=== PATIENT | male | born 1960 | race Caucasian/White ===

== ENCOUNTER 2017-10-11 11:09 | Inpatient (IN) ==
[~2017-10-11 11:09] MED LIST: Vancomycin 1,000 MG, Sodium Chloride IRRigation 1,000 ML IR ONE
[2017-10-11] MEDS ORDERED: Albuterol 2.5 MG/3 ML NEBULIZER IH ONE (11:38)
[2017-10-11] MEDS ORDERED: Ringers Solution, Lactated 1,000 ML IVC SCH (11:45)
--- NOTE | 2017-10-11 11:55 | Anesthesia Evaluation PreOp ---
Date of Encounter: 10/11/17 Time of Encounter: 11:53 - Past History Planned Operation: Left Femoral endarterectomy, Left Iliac Stent Cardiac History: Cardiac Surgery (CABG x 2 2007), Other (PVD) Anesthesia History: Past Anesthesia (CABG, R. RCR 2015, hernia) Alcohol Use: none Drug use: none Medications and Allergies Aspirin 325 mg PO DAILY 09/11/17 [History] Cilostazol [Pletal] 100 mg PO BID 09/11/17 [History] 3 Allergy/AdvReac Type Severity Reaction Status Date / Time cephalexin [From Keflex] Allergy Anaphylaxis Verified 10/11/17 12:03 Penicillins Allergy Anaphylaxis Verified 10/11/17 12:03 - Meds/Allergy Pre-op Review Medications Reviewed: Yes Allergies Reviewed: Yes Beta Blockers on Current Med List: No Anesthesia Results - Labs Laboratory Tests 10/03/17 10/03/17 10/03/17 10:28 10:28 10:28 WBC 7.5 Hgb 15.1 Hct 44.9 Plt Count 292 INR 1.1 Sodium 138 Potassium 4.2 Chloride 107 Carbon Dioxide 23 BUN 18 Creatinine 1.02 Date of Study: 10/09/2017 Procedures Performed: LEFT HEART CATH W/ GRAFTS Indications: Abnormal Test - Stress Impressions: There is severe three vessel coronary artery disease. The left ventricle is normal and has normal contractility EF 55% S/P CABG 3 of 3 patent bypass grafts. Recommendations: Optimal medical therapy of patient's disease. Aggressive risk factor modification. Anesthesia Exam O2 Sat Height 1.75 m Height 1.75 m Weight 77.564 kg Weight 77.564 kg O2 Sat by Pulse Oximetry 93 Vital Signs Temp Pulse Resp BP Pulse Ox 98.0 F 77 18 126/83 93 10/11/17 11:34 10/11/17 11:34 10/11/17 11:34 10/11/17 11:34 10/11/17 11:34 NPO (# of Hours): > 8 hrs Pain Scale: 0 Pain Scale Used: Numeric (1 - 10)
[2017-10-11] MEDS ORDERED: *HR* FentaNYL (PF) 100 MCG/2 ML VIAL ONE ×3 (12:32→14:51)
[2017-10-11] MEDS ORDERED: *HR* Propofol 200 MG/20 ML VIAL IVP ONE ×2 (12:32→13:56)
[2017-10-11] MEDS ORDERED: Lidocaine -MPF 2% 2 ML VIAL ONE ×3 (12:33→14:52)
[2017-10-11] MEDS ORDERED: *HR* Rocuronium Bromide 50 MG/5 ML VIAL ONE ×2 (12:34→15:38)
[2017-10-11] MEDS ORDERED: *HR* Midazolam HCl 2 MG/2 ML VIAL ONE ×2 (12:37→13:56)
[2017-10-11] MEDS ORDERED: Dexamethasone 4 MG/ML VIAL ONE ×2 (12:59→15:44)
[2017-10-11] MEDS ORDERED: Ondansetron 4 MG/2 ML VIAL ONE ×2 (12:59→15:44)
[2017-10-11] MEDS ORDERED: Heparin 1,000 UNITS/500 mL 1,500 ML ONE (13:51)
[2017-10-11] MEDS ORDERED: *HR* Succinylcholine 200 MG/10 ML VIAL IVP ONE (13:57)
[2017-10-11] MEDS ORDERED: Ketamine *HR* 500 MG/10 ML MDV ONE (13:58)
[2017-10-11] MEDS ORDERED: Acetaminophen IV 1,000 MG/100 ML INFUS..BTL ONE (14:03)
[2017-10-11] MEDS ORDERED: Isovue-300 150 ML INFUS..BTL IV ONE (14:04)
[2017-10-11] MEDS ORDERED: Heparin 1,000 UNITS/500 mL 500 ML ONE (14:05)
--- NOTE | 2017-10-11 14:38 | History & Physical Report ---
Date of Encounter: 10/11/17 Time of Encounter: 14:25 24 Hour HP Update - Instructions Instructions: If the History and Physical is less than 30 days old and was completed prior to A.M. admission and or procedure and has NOT been updated on calendar day of procedure please complete this update prior to performing procedure. - Update Patient reports changes in Medical Condition: No Changes in examination, assessment, or condition: No Changes in Medication: No Preop tests/diagnostics Reviewed: Yes Surgery Remains Indicated: Yes Consent for Planned Operative Procedure(s) Verified: Yes - Pre-Operative Checklist Preoperative Checklist Indicated: Yes Prophylactic Antibiotic Ordered: Yes (Vancomycin due to PCN allergy) Home Medications Include Beta Hillary: No Beta Hillary Taken Today (Day of Surgery): No Beta Hillary Taken Yesterday (Day Prior to Surgery): No Is VTE Prophylaxis Indicated?: Yes
[2017-10-11] MEDS ORDERED: Esmolol 100 MG/10 ML VIAL IVP ONE (15:09)
[2017-10-11] MEDS ORDERED: *HR* Heparin 5,000 UNIT/ML VIAL ONE ×2 (15:50→16:26)
[2017-10-11] MEDS ORDERED: *HR* OxyCODONE Immed Rel 5 MG TABLET PO PRN ×3 (16:02→18:06)
[2017-10-11] MEDS ORDERED: *HR* Labetalol 20 MG/4 ML SYRINGE IVP PRN ×3 (16:02→18:06)
[2017-10-11] MEDS ORDERED: *HR* Promethazine 25 MG/ML VIAL IVP PRN (16:02)
--- NOTE | 2017-10-11 16:06 | Anesthesia Procedures ---
Date of Encounter: 10/11/17 Time of Encounter: 14:50 Procedures: Anesthesia - Arterial Line Consent obtained: written consent Time out performed: Yes Supplemental Oxygen via Nasal Cannula (L/min): 15 Local Anesthetic: Lidocaine 1% Amount of Anesthetic used (mls): 1 Size (Gauge): 20 Length (inches): 1 3/4 Technique Used: sterile prep, guide wire technique, direct puncture technique Post-Procedure: line taped into place, dry sterile dressing placed Patient tolerated procedure: well, no complications Complications: none Site: Radial R Vitals: see anesthetic record
[2017-10-11] MEDS ORDERED: *HR* PHENYLEPHRINE 1,000 MCG/10 ML SYRINGE IVP ONE (16:07)
[2017-10-11] MEDS ORDERED: Neostigmine Methylsulfate 3 MG/3 ML SYRINGE ONE (16:54)
[2017-10-11] MEDS ORDERED: Metoclopramide 10 MG/2 ML VIAL ONE (16:54)
[2017-10-11] MEDS ORDERED: Ketorolac 30 MG/ML VIAL ONE (16:57)
[2017-10-11] MEDS: *HR* Morphine 2 MG/ML SYRINGE IVP PRN ×2 (17:20→17:50)
--- NOTE | 2017-10-11 17:22 | Operative Note ---
Date of procedure: 10/11/17 Pre-op diagnosis: Peripheral Vascular Disease with Rest Pain Post-op diagnosis: same Procedure: 1. Abdominal aortogram 2. Left common iliac artery 8 x 37mm stent placement x2 3. Left external iliac artery 8 x 37mm stent placement. 4. Left common and deep femoral artery endarterectomy with bovine pericardial patch angioplasty. Complications: None Anesthesia: GETA Surgeon: Capo Castillo Was there an animal care assistant present: No Estimated blood loss (cc): 50 Specimen: Left femoral plaque Condition: stable Disposition: PACU Procedure in Detail: Indications: The patient is a 57 year old male with a history of peripheral vascular disease with rest pain, coronary artery disease and tobacco abuse. He was found to have a left common and external iliac artery occlusion as well as significant left femoral artery disease. He reported rest pain and revascularization was recommended to alleviate his symptoms and reduce his risk of limb loss. Procedure: The patient was identified in the preoperative area. The risks, benefits, and alternatives of procedure were discussed and all questions were answered. He was taken to the operating room and placed in supine position on the operating room table. After the induction of general endotracheal anesthesia, he was cleaned and draped in normal sterile fashion. An oblique incision was made in the left groin sharply. Hemostasis was obtained with electrocautery. Through a process of blunt and sharp electrocautery dissection, the skin and subcutaneous tissues were incised and the left distal iliac, common femoral, deep femoral and superficial femoral arteries were dissected cicumferentially and surrounded with vessel loops. The patient received 5000 units of heparin intravenously and additional heparin throughout the case to maintain adequate anticoagulation. The vessels were occluded by applying tension to the vessel loops. A micropuncture needle was used to cannulate the left common femoral artery. A microwire was advanced into the left external iliac artery. The needle was exchanged for a 4 [place] micro sheath. The wire was exchanged for a Val[place]arc[place] wire. The microsheath was exchanged for a 6 [place] sheath. Using a catheter a glidewire was advanced into the aorta. The catheter was advanced into the aorta and the wire was removed. An angiogram revealed intraluminal placement of the catheter. A magic torque wire was advanced into the aorta. The catheter was removed. An aortogram was performed for stent sizing and positioning. An 8 x37mm stent was deployed at the origin of the left common iliac artery. An angiogram was performed that revealed the iliac artery remained occluded distal to the stent. An additional 8 x 37mm stent was advanced over the wire and deployed. An angiogram revealed external iliac atery stenosis. An additional 8 x 37mm stent was tehn advanced over the wire and deployed across the left external iliac artery stenosis. A completion angiogram revealed no hemodynamically significant residual iliac stenosis. The wire and sheath were removed and the vessel was flushed. A strong pulse was noted proximally in the common femoral artery but the femoral plaque obstructed flow in the mid and distal artery. A longitudinal ateriotomy was made into the common femoral artery and it was extended distally into the deep femoral artery. Dense, nearly occlusive atherosclerotic plaque was encountered in the comon femoral artery and noted to be extending into the deep femoral artery. Minimal retrograde flow was noted on release of the deep femoral vessel loop. The left superficial femoral artery was noted to be chronically occluded. Using a dental [place], a standard endarterectomy was performed on the left common femoral and deep femoral arteries. Proximal and distal endpoints were inspected. No elevated flaps were noted. A bovine pericardial patch was cut to fit the defect and sutured in place with running 6-0 Prolene. Prior to completing the patch anastomosis, each vessel was flushed individually, then reoccluded. Heparinized saline was infused into the lumen. The patch was completed and flow was restored. Thrombin and Gelfoam were used to aid in hemostasis. Polyphasic signal was noted distal to the distal end of the patch as well as the posterior tibial artery. Wound was irrigated with antibiotic-containing saline. Platelet-rich and platelet-poor plasma were infused into the wound. The wounds were reapproximated with layer of 2-0 Vicryl followed by two layers of 3-0 and Vicryl 3-0 Monocryl in the subcuticular layer. Sterile dressings were applied. The patient was extubated, taken to recovery room in stable condition.
[2017-10-11] MEDS ORDERED: Acetaminophen 325 MG TABLET PO PRN ×2 (17:24→18:06)
[2017-10-11] MEDS ORDERED: Naloxone 0.4 MG/ML INJ IVP PRN ×2 (17:24→18:06)
[2017-10-11] MEDS ORDERED: Ondansetron 4 MG/2 ML VIAL IVP PRN ×2 (17:24→18:06)
[2017-10-11] MEDS ORDERED: *HR* HYDROcodone/Acet 5/325 mg TABLET PO PRN ×2 (17:24→18:06)
[2017-10-11] MEDS ORDERED: OXYCODONE Oral CONC 10 MG/0.5 ML ORAL.SYG SL PRN ×4 (17:24→18:06)
[2017-10-11] MEDS ORDERED: Ketorolac 15 MG/ML VIAL IVP SCH (18:00)
[2017-10-11] MEDS ORDERED: *HR* Metoprolol 5 MG/5 ML VIAL IVP SCH (18:00)
--- NOTE | 2017-10-11 20:59 | Discharge Summary ---
<NoelleAllan J - Last Filed: 10/12/17 14:35> Orders not resulted at time of discharge: Pending orders 10/10/17 09:02 Red Blood Cells [BBK] Routine 10/11/17 17:17 Surgical Pathology [PTH] Routine Date of Encounter: 10/12/17 Time of Encounter: 14:35 - Discharge Diagnosis (1) Tobacco abuse Priority: Secondary Status: Chronic Comments: History of tobacco abuse (2) Atherosclerosis of [place] arteries of extremities with rest pain, bilateral legs Priority: Primary Status: Chronic Comments: Patient has significant left lower extremity symptoms. This led to noninvasive and contrast studies. The patient was admitted for left iliac stent and left femoral artery endarterectomy. (3) CAD (coronary artery disease) Priority: Secondary Status: Chronic Comments: Patient has history of coronary artery disease. He is under medical treatment. Qualifiers: Coronary Disease-Associated Artery/Lesion type: [place] artery [place] vs. transplanted heart: [place] heart Associated angina: without angina Qualified Code(s): I25.10 - Atherosclerotic heart disease of [place] coronary artery without angina pectoris - Hospital Course Hospital course: Mr. Coburn is a 57 year old male With left lower extremity claudication. Angiography revealed significant left iliac disease. The patient underwent a left iliac artery stent angioplasty and left common femoral artery endarterectomy. He had no periprocedural complications. He is feeling well. He is felt fit for discharge on the afternoon of postoperative day #1. Instructions were given prior to his discharge. - Time Spent with Patient Total time spent providing and/or coordinating discharge services: - Discharge Medications Prescriptions: OxyCODONE/APAP 5/325 [Percocet 5/325 MG] 1 each PO Q6HR PRN 7 Days #25 tablet PRN Reason: postoperative pain Clopidogrel [Plavix] 75 mg PO DAILY #30 tablet Home Medications: Aspirin 325 mg PO HS 09/11/17 [History] Clopidogrel [Plavix] 75 mg PO DAILY #30 tablet 10/11/17 [Rx] OxyCODONE/APAP 5/325 [Percocet 5/325 MG] 1 each PO Q6HR PRN 7 Days #25 tablet [Rx] Allergies/Adverse Reactions: 3 Allergy/AdvReac Type Severity Reaction Status Date / Time cephalexin [From Keflex] Allergy Anaphylaxis Verified 10/11/17 12:03 Penicillins Allergy Anaphylaxis Verified 10/11/17 12:03 Date of admission: 10/11/17 17:26 Primary care physician: Timbo Zhou, Consults: None Anticipated date of discharge: 10/12/17 Exam General: Present: Conversant, No Apparent Distress, Well developed, Well nourished HEENT: Present: Atraumatic Neck: Absent: JVD Neuro: Present: Alert and responsive, No focal deficits noted Abdomen: Present: Soft Vascular: Present: Color/Temperature (Left foot is warm and pink.), Surgical incisions (Patient has an intact dressing on the left groin.) Skin: Present: No rashes noted on visualized skin - Patient Status Disposition: Home, Self-Care Condition: Good Functional capacity at discharge: independent ambulation Overall status at discharge: patient is progressing back to baseline - Discharge Instructions Instructions: Clopidogrel (By mouth), Peripheral Vascular Stent Placement (GEN) , Peripheral Vascular Disorders (GEN) Follow Up With: Capo Amaya MD [Partnered Physician] - 10/30/17 1:20 pm Timbo Zhou DO [Primary Care Provider] - 10/23/17 9:00 am (THIS IS THE EARLIEST APPOINTMENT AVAILABLE FOR F/U) Additional Instructions: MAY REMOVE BANDAGES AND SHOWER ON 10/14/17. NO TUB BATHS OR SWIMMING UNTIL 11/04/17. WASH WOUNDS GENTLY AND PAT TO DRY. APPLY DRY GAUZE TO GROIN WOUND DAILY FOR [address] AMAYA AT [phone] WITH QUESTIONS OR CONCERNS. - Diet and Activity Activity: increase activity as tolerated Diet: advance to your usual diet <Capo Amaya - Last Filed: 10/18/17 18:53> Orders not resulted at time of discharge: Pending orders 10/10/17 09:02 Red Blood Cells [BBK] Routine 10/11/17 17:17 Surgical Pathology [PTH] Routine 10/12/17 04:00 Basic Metabolic Panel AM 0400 Complete Blood Count [HEME] AM 0400 Date of Encounter: 10/12/17 - Discharge Diagnosis (1) Atherosclerosis of [place] arteries of extremities with rest pain, bilateral legs Priority: Primary Status: Chronic (2) CAD (coronary artery disease) Priority: Secondary Status: Chronic Qualifiers: Coronary Disease-Associated Artery/Lesion type: [place] artery [place] vs. transplanted heart: [place] heart Associated angina: without angina Qualified Code(s): I25.10 - Atherosclerotic heart disease of [place] coronary artery without angina pectoris (3) Tobacco abuse Priority: Secondary Status: Chronic - Hospital Course Hospital course: Mr. Coburn is a 57 year old male - Time Spent with Patient Total time spent providing and/or coordinating discharge services: Date of admission: 10/11/17 17:26 Primary care physician: Timbo Zhou, Procedure(s) Performed: Left iliac stent and left femoral endarterectomy. Discharging clinician: Capo Amaya Exam Vital Signs, Last 4 Hours Temp Pulse Resp BP Pulse Ox 10/11/17 18:49 98.4 F 66 19 166/107 92 10/11/17 18:45 69 10/11/17 18:28 67 16 157/98 93 10/11/17 18:10 98.0 F 64 16 157/94 100 10/11/17 18:00 64 16 158/97 100 10/11/17 17:50 67 16 166/93 100 10/11/17 17:40 97.7 F 71 16 153/95 100 10/11/17 17:30 73 16 151/94 99 10/11/17 17:20 79 18 153/95 99 10/11/17 17:10 97.5 F L 88 20 155/103 99 - VTE Documentation of Mechanical Device: Intermittent pneumatic compression device
[2017-10-11] MEDS ORDERED: Aspirin 81 MG TAB.CHEW PO SCH (21:00)
[2017-10-11] MEDS: *HR* Metoprolol 5 MG/5 ML VIAL IVP SCH (23:51)
[2017-10-11] MEDS: Ketorolac 15 MG/ML VIAL IVP SCH (23:51)
[2017-10-12] MEDS ORDERED: Vancomycin 0 MG in D5% in Water 250 ML IVPB ONE (01:30)
[2017-10-12 04:49] LABS: Basophils % 0.2 %; Hemoglobin 14.3 g/dL (12.9-16.9); Immature Granulocytes % 0.2 % (0-4); Lymphocytes # 0.8 K/mcL (0.6-4.6); Lymphocytes % 8.4 %; Mean Corpuscular Volume 91.1 fL (83.0-100.0); Mean Platelet Volume 9.6 fL (9.4-12.4); Monocytes # 0.3 K/mcL (0.0-1.3); Neutrophils # 8.1 K/mcL (1.6-8.9); Platelet Count 218 K/mcL (140-400); Red Blood Count 4.61 M/mcL (4.19-5.50); Red Cell Distribution Width 13.1 % (11.5-14.5); Segmented Neutrophils % 88.2 %
[2017-10-12 05:11] LABS: BUN/Creatinine Ratio 18 (6-26); Blood Urea Nitrogen 17 mg/dL (6-20); Calcium 9.3 mg/dL (8.6-10.3); Carbon Dioxide 25 mEq/L (23-29); Chloride 104 mEq/L (98-107); Glucose 147 mg/dL (70-105); Osmolality,Calculated 286 (280-300); Potassium 4.7 mEq/L (3.5-5.1); Sodium 136 mEq/L (136-145); eGFR For African Americans > 60 (> 60); eGFR For Non-African Americans > 60 (> 60)
[2017-10-12] MEDS: *HR* Metoprolol 5 MG/5 ML VIAL IVP SCH ×2 (05:52→12:00)
[2017-10-12] MEDS: Ketorolac 15 MG/ML VIAL IVP SCH ×2 (05:52→12:00)
[2017-10-12] MEDS ORDERED: *HR* Heparin 5,000 UNIT/ML VIAL SQ SCH ×2 (06:00)
[2017-10-12 06:37] VITALS: BP 124/73
== END 2017-10-12 15:15 | disposition home or self-care (01) | DRG 254 ==
LOC: SAMDAY 11:09 → 2NNU 17:26
PROVIDERS: ADMIT Surgery; ATTEND Surgery

== ENCOUNTER 2017-11-28 10:38 | Inpatient (IN) ==
[2017-11-28] MEDS ORDERED: Albuterol 2.5 MG/3 ML NEBULIZER IH ONE ×2 (11:12→13:34)
[2017-11-28] MEDS ORDERED: CeFAZolin Syr 2,000MG/20 ML 2,000 MG/20 ML SYRINGE IVPB ONE (11:12)
[2017-11-28] MEDS ORDERED: Ringers Solution, Lactated 1,000 ML IVC SCH ×2 (11:15→13:45)
[2017-11-28] MEDS ORDERED: Albuterol 2.5 MG/3 ML NEBULIZER ONE (11:24)
--- NOTE | 2017-11-28 12:20 | History & Physical Report ---
Date of Encounter: 11/28/17 Time of Encounter: 12:15 24 Hour HP Update - Instructions Instructions: If the History and Physical is less than 30 days old and was completed prior to A.M. admission and or procedure and has NOT been updated on calendar day of procedure please complete this update prior to performing procedure. - Update Patient reports changes in Medical Condition: No Changes in examination, assessment, or condition: No Changes in Medication: No Preop tests/diagnostics Reviewed: Yes Surgery Remains Indicated: Yes Consent for Planned Operative Procedure(s) Verified: Yes - Pre-Operative Checklist Preoperative Checklist Indicated: Yes Prophylactic Antibiotic Ordered: Yes (vancomycin due to MRSA risk) Home Medications Include Beta Hillary: No Beta Hillary Taken Today (Day of Surgery): No Beta Hillary Taken Yesterday (Day Prior to Surgery): No Is VTE Prophylaxis Indicated?: Yes
[2017-11-28] MEDS ORDERED: *HR* Succinylcholine 200 MG/10 ML VIAL IVP ONE (12:39)
[2017-11-28] MEDS ORDERED: Lidocaine -MPF 2% 2 ML VIAL ONE (12:39)
[2017-11-28] MEDS ORDERED: Lidocaine -MPF 4% 5 ML AMPUL ONE (12:39)
[2017-11-28] MEDS ORDERED: *HR* Rocuronium Bromide 50 MG/5 ML VIAL ONE (12:39)
[2017-11-28] MEDS ORDERED: Ondansetron 4 MG/2 ML VIAL ONE (12:39)
[2017-11-28] MEDS ORDERED: *HR* Propofol 200 MG/20 ML VIAL IVP ONE (12:39)
[2017-11-28] MEDS ORDERED: *HR* FentaNYL (PF) 100 MCG/2 ML VIAL ONE (12:39)
[2017-11-28] MEDS ORDERED: Dexamethasone 4 MG/ML VIAL ONE (12:39)
[2017-11-28] MEDS ORDERED: *HR* Midazolam HCl 2 MG/2 ML VIAL ONE (12:39)
--- NOTE | 2017-11-28 12:57 | Anesthesia Evaluation PreOp ---
Date of Encounter: 11/28/17 Time of Encounter: 12:55 - Past History Planned Operation: Right Iliac stent, femoral endartrectomy Cardiac History: HTN, Hyperlipidemia, Cardiac Surgery (CABG 2007), Other (2017: Positive stress test, Patent grafts b) Pulmonary History: Smoker [employer] History: Denies Any Significant HX Alcohol Use: none Drug use: none Medications and Allergies Aspirin 325 mg PO HS 09/11/17 [History] Clopidogrel [Plavix] 75 mg PO DAILY #30 tablet 10/11/17 [Rx] 3 Allergy/AdvReac Type Severity Reaction Status Date / Time cephalexin [From Keflex] Allergy Anaphylaxis Verified 11/28/17 11:48 Penicillins Allergy Anaphylaxis Verified 11/28/17 11:48 - Meds/Allergy Pre-op Review Medications Reviewed: Yes Allergies Reviewed: Yes Anesthesia Results - Labs Laboratory Tests 11/26/17 11/26/17 10:42 10:42 Hgb 15.5 Hct 45.9 Plt Count 258 Sodium 140 Potassium 4.6 BUN 17 Creatinine 1.09 Glucose 98 Calcium 9.5 Anesthesia Exam O2 Sat Height 1.75 m Height 1.75 m Height 1.75 m Weight 79.379 kg Weight 79.379 kg Weight 79.379 kg O2 Sat by Pulse Oximetry 98 Vital Signs Temp Pulse Resp BP Pulse Ox 97.7 F 58 18 134/81 98 11/28/17 11:08 11/28/17 11:08 11/28/17 11:08 11/28/17 11:08 11/28/17 11:08 NPO (# of Hours): >8 - HEENT Mallampati: II Teeth: Normal - Cardiac Rhythm: Regular - Pulmonary Breath Sounds: bilateral Clear Anesthesia Assess/Plan ASA Score: 3 Modified [place] Scale for Level of Consciousness: Cooperative, oriented, and tranquil Anesthetic Plan: General Monitoring Plan: Standard Monitors Recovery Plan: PACU Anes Supervising Prov Stmt: Patient informed and consented. Risks, benefits, and alternatives discussed. Patient wishes to proceed.
[2017-11-28] MEDS ORDERED: Heparin 1,000 UNITS/500 mL 1,500 ML ONE (13:02)
[2017-11-28] MEDS ORDERED: Lidocaine 1% 20 ML MDV ONE (13:02)
[2017-11-28] MEDS ORDERED: *HR* PHENYLEPHRINE 1,000 MCG/10 ML SYRINGE IVP ONE (13:31)
[2017-11-28] MEDS ORDERED: Acetaminophen IV 1,000 MG/100 ML INFUS..BTL IVPB ONE (13:34)
[2017-11-28] MEDS ORDERED: *HR* Labetalol 20 MG/4 ML SYRINGE IVP PRN ×2 (13:34→17:16)
[2017-11-28] MEDS ORDERED: *HR* HYDROmorphone 2 MG TABLET PO PRN (13:34)
[2017-11-28] MEDS ORDERED: *HR* OxyCODONE Immed Rel 5 MG TABLET PO PRN ×2 (13:34→17:16)
[2017-11-28] MEDS ORDERED: Naloxone 0.4 MG/ML INJ IVP PRN ×2 (13:34→17:16)
[2017-11-28] MEDS ORDERED: Ondansetron 4 MG/2 ML VIAL IVP ONE (13:34)
[2017-11-28] MEDS ORDERED: MORPHINE SUL Oral CONC 10 MG/0.5 ML ORAL.SYG SL PRN (13:34)
[2017-11-28] MEDS ORDERED: *HR* Meperidine 25 MG/ML SYRINGE IVP PRN (13:34)
[2017-11-28] MEDS ORDERED: Isovue-300 50 ML VIAL IVP ONE (14:30)
[2017-11-28] MEDS ORDERED: *HR* Heparin 5,000 UNIT/ML VIAL ONE ×2 (14:40→15:08)
--- NOTE | 2017-11-28 15:55 | Operative Note ---
Date of procedure: 11/28/17 Pre-op diagnosis: Peripheral vascular disease with disabling claudication Post-op diagnosis: same Procedure: 1. Right iiliac throbectomy with 5 [place] marielena embolectomy catheter. 2. Right iliofemoral endarterectomy with bovine pericardial patch angioplasty. 3. Right deep femoral artery endarterectomy. Complications: None Anesthesia: ALLY Surgeon: Capo Castillo Was there an educational assistant present: No Estimated blood loss (cc): 100 Specimen: Right lower extremity thrombus and plaque Condition: stable Disposition: PACU Procedure in Detail: Indications: The patient is a 57 year old male with multiple medical comorbidities including coronary artery disease and tobacco abuse. The patient reported progressively disabling right lower extremity claudication. An angiogram revealed right extrenal iliac, common femoral, deep femoral and superficial femoral artery high grade irregular stenoses. Revascularization was recommended for symptomatic relief. Procedure: The patient was identified in the preoperative area. The risks, benefits, and alternatives of procedure were discussed and all questions were answered. He was taken to the operating room and placed in supine position on the operating room table. After the induction of general endotracheal anesthesia, he was cleaned and draped in normal sterile fashion. An oblique incision was made along the right groin sharply. Hemostasis was obtained with electrocautery. Through a process of blunt and sharp electrocautery dissection, the skin and subcutaneous tissues were incised and the mid to distal external iliac artery was dissected underneath the inguinal ligament and a vessel loop was passed around it. The common femoral artery, deep femoral artery and superficial femoral artery were dissected circumferentially and surrounded with vessel loops. The vessels were noted to be firm and heaviliy calcified. The superficial femoral artery was palpated and the dissection was extended distally until it was noted to be soft without significant plaque. A vessel loop was then used to surround the artery. The patient received 5000 units of heparin intravenously and additional heparin throughout the case to maintain adequate anticoagulation. The vessels were occluded. A longitudinal arteriotomy was made sharply into the common femoral artery. It was extended under the inguinal ligament into the external iliac artery proximally. It was then extended into the superficial femoral artery distally. Significant thrombus was noted and a 5 [place] marielena embolectomy catheter was passed proximally and signficant thrombus was retrieved. The ballon was noted to get stuck in the distal external iliac multiple times. A firm calcified plaque could be palpated in the region. Using a dental freer, an endarterectomy was performed from the external iliac artery through the common femoral artery. The plaque was irregular and heavily calficied. Proximally, the lumen became patent without significant stenosis. The plaque was excised sharply and no elevated flaps were noted at the endpoint. Distally, the plaque was excised at the deep femoral artery. Using a dental freer, plaque was then circumferentially excised from the deep femoral artery using an eversion technique. The plaque was excised and no elevated flap was noted. Release of the vessel loop revealed significant retrograde flow. The loop was tightened. The lumen was irrigated with heparinzed saline. A bovine pericardial patch was cut to fit the defects in the external iliac, common femoral and superficial femoral arteries. The patch was sutured in place with running 6-0 Prolene. Prior to completing the patch anastomosis, each vessel was flushed individually, then reoccluded. Heparinized saline was infused into the lumen. The patch was completed and flow was restored. Thrombin and Gelfoam were used to aid in hemostasis. Polyphasic signal was noted distal to the distal end of the patch as well as the posterior tibial artery. Wound was irrigated with antibiotic-containing saline. Platelet-rich and platelet-poor plasma were infused into the wound. The wounds were reapproximated with layer of 2-0 Vicryl followed by two layers of 3-0 and Vicryl 3-0 Monocryl in the subcuticular layer. Sterile dressings were applied. The patient was extubated and taken to recovery room in stable condition.
[2017-11-28] MEDS ORDERED: 0.9 % Sodium Chloride 1,000 ML IVC SCH (17:16)
[2017-11-28] MEDS ORDERED: Acetaminophen 325 MG TABLET PO PRN (17:16)
[2017-11-28] MEDS ORDERED: *HR* HYDROcodone/Acet 5/325 mg TABLET PO PRN (17:16)
[2017-11-28] MEDS ORDERED: Ondansetron 4 MG/2 ML VIAL IVP PRN (17:16)
[2017-11-28] MEDS ORDERED: OXYCODONE Oral CONC 10 MG/0.5 ML ORAL.SYG SL PRN ×2 (17:16)
[2017-11-28] MEDS: *HR* Metoprolol 5 MG/5 ML VIAL IVP SCH (17:43)
[2017-11-28] MEDS ORDERED: Aspirin 325 MG TABLET PO SCH (21:00)
[2017-11-28] MEDS ORDERED: Aspirin 81 MG TAB.CHEW PO SCH (21:00)
[2017-11-29] MEDS: *HR* Metoprolol 5 MG/5 ML VIAL IVP SCH ×2 (00:31→05:23)
[2017-11-29 04:36] LABS: Basophils % 0.1 %; Hematocrit 39.8 % (37.5-50.1); Immature Granulocytes % 0.5 % (0-4); Lymphocytes % 9.9 %; Mean Corpuscular HGB Conc 33.9 g/dL (31.6-35.5); Mean Corpuscular Hemoglobin 31.3 pg (28.0-33.3); Mean Corpuscular Volume 92.1 fL (83.0-100.0); Mean Platelet Volume 10.1 fL (9.4-12.4); Monocytes # 0.5 K/mcL (0.0-1.3); Monocytes % 4.6 %; Neutrophils # 8.6 K/mcL (1.6-8.9); Platelet Count 228 K/mcL (140-400); Red Blood Count 4.32 M/mcL (4.19-5.50); Red Cell Distribution Width 12.8 % (11.5-14.5); Segmented Neutrophils % 84.9 %
[2017-11-29 04:37] LABS: Hemoglobin 13.5 g/dL (12.9-16.9)
[2017-11-29 04:50] LABS: BUN/Creatinine Ratio 20 (6-26); Blood Urea Nitrogen 17 mg/dL (6-20); Calcium 8.8 mg/dL (8.6-10.3); Carbon Dioxide 25 mEq/L (23-29); Chloride 107 mEq/L (98-107); Glucose 125 mg/dL (70-105); Osmolality,Calculated 289 (280-300); Potassium 4.7 mEq/L (3.5-5.1); Sodium 138 mEq/L (136-145); eGFR For African Americans > 60 (> 60); eGFR For Non-African Americans > 60 (> 60)
[2017-11-29] MEDS ORDERED: *HR* Heparin 5,000 UNIT/ML VIAL SQ SCH ×2 (06:00)
[2017-11-29 07:14] VITALS: BP 113/79
--- NOTE | 2017-11-29 09:51 | Discharge Summary ---
Date of Encounter: 11/29/17 Time of Encounter: 10:05 - Discharge Diagnosis (1) Atherosclerosis of [place] arteries of extremities with rest pain, bilateral legs Priority: Primary Status: Chronic Comments: The patient is postoperative day #1 after a right iliac thrombectomy and right iliofemoral endarterectomy. He is healing well. His feet are warm and he reports improvement of his symptoms. He will be discharged today. (2) CAD (coronary artery disease) Priority: Secondary Status: Chronic Qualifiers: Coronary Disease-Associated Artery/Lesion type: [place] artery [place] vs. transplanted heart: [place] heart Associated angina: without angina Qualified Code(s): I25.10 - Atherosclerotic heart disease of [place] coronary artery without angina pectoris (3) Tobacco abuse Priority: Secondary Status: Chronic - Hospital Course Hospital course: Mr. Coburn is a 57 year old male with peripheral vascular disease, coronary artery disease and tobacco abuse. He was admitted on 11/28/17 and underwent a right iliac thrombectomy and right lower extremity endarterectomy. He was discharged on postoperative day #1 in stable condition without complications. Time spent discussing smoking cessation with patient: 3 to 10 minutes - Time Spent with Patient Total time spent providing and/or coordinating discharge services: - Discharge Medications Prescriptions: OxyCODONE/APAP 5/325 [Percocet 5/325 MG] 1 each PO Q6HR PRN 5 Days #20 tablet PRN Reason: POSTOPERATIVE PAIN Home Medications: Aspirin 325 mg PO HS 09/11/17 [History] Clopidogrel [Plavix] 75 mg PO DAILY #30 tablet 10/11/17 [Rx] OxyCODONE/APAP 5/325 [Percocet 5/325 MG] 1 each PO Q6HR PRN 5 Days #20 tablet [Rx] Allergies/Adverse Reactions: 3 Allergy/AdvReac Type Severity Reaction Status Date / Time cephalexin [From Keflex] Allergy Anaphylaxis Verified 11/28/17 11:48 Penicillins Allergy Anaphylaxis Verified 11/28/17 11:48 Date of admission: 11/28/17 16:42 Primary care physician: Timbo Zhou, Procedure(s) Performed: Right iliac thrombectomy and right lower extremity endarterectomy. Discharging clinician: Capo Amaya Anticipated date of discharge: 11/29/17 Exam Vital Signs, Last 4 Hours Temp Pulse Resp BP Pulse Ox 11/29/17 07:44 96 11/29/17 07:41 70 11/29/17 07:29 77 20 96 11/29/17 07:11 97.9 F 72 16 113/79 91 General: Present: Conversant, No Apparent Distress HEENT: Present: Pupils equal Neck: Absent: JVD Cardiac: Present: Reg Rate and Rhythm Lungs: Present: Normal Breath Sounds Neuro: Present: Alert and responsive, No focal deficits noted Abdomen: Present: Soft, Non-tender Vascular: Present: Normal capillary refill, Pulse, normal (pedal signals present bilaterally), Surgical incisions (incision clean and dry, no erythema, no hematoma). Absent: Cyanosis, Edema Skin: Present: No rashes noted on visualized skin - Patient Status Disposition: Home, Self-Care Condition: Good Functional capacity at discharge: independent ambulation Overall status at discharge: patient is back to baseline - Discharge Instructions Instructions: Peripheral Vascular Stent Placement (DC), Peripheral Vascular Disorders (DC) Follow Up With: Nita Gibson CNP [Advanced Practice Nurse] - 12/06/17 9:00 am Capo Amaya MD [Partnered Physician] - 01/08/18 1:00 pm Additional Instructions: MAY REMOVE BANDAGE AND SHOWER ON 11/30/17. NO TUB BATHS OR SWIMMING UNTIL 12/20/17. WASH WOUND GENTLY AND PAT TO DRY. APPLY DRY GAUZE TO WOUND DAILY FOR [address] AMAYA AT [phone] WITH QUESTIONS OR CONCERNS. - Diet and Activity Activity: increase activity as tolerated Diet: low fat, low cholesterol - VTE Documentation of Mechanical Device: Intermittent pneumatic compression device
== END 2017-11-29 11:03 | disposition home or self-care (01) | DRG 272 ==
LOC: SAMDAY 10:38 → 2NNU 16:42
PROVIDERS: ADMIT Surgery; ATTEND Surgery

== ENCOUNTER 2019-08-26 07:00 | Inpatient (IN) ==
[2019-08-26] MEDS ORDERED: Albuterol 2.5 MG/3 ML NEBULIZER IH PRN (07:34)
[2019-08-26] MEDS ORDERED: Clindamycin 900 MG/50 ML 900 MG/50 ML IV.SOLN IVPB ONE (07:34)
[2019-08-26] MEDS ORDERED: Famotidine 20 MG/2 ML VIAL IVP ONE (07:39)
[2019-08-26] MEDS ORDERED: Acetaminophen IV 1,000 MG/100 ML INFUS..BTL IVPB ONE (07:39)
[2019-08-26] MEDS ORDERED: Ringers Solution, Lactated 1,000 ML IVC SCH (07:45)
[2019-08-26] MEDS ORDERED: *HR* Midazolam HCl 2 MG/2 ML VIAL ONE (08:23)
[2019-08-26] MEDS ORDERED: Ondansetron 4 MG/2 ML VIAL ONE (08:24)
[2019-08-26] MEDS ORDERED: Heparin 1,000 UNITS/500 mL 500 ML ONE (08:24)
[2019-08-26] MEDS ORDERED: *HR* FentaNYL (PF) 100 MCG/2 ML VIAL ONE ×3 (08:24→13:13)
[2019-08-26] MEDS ORDERED: Lidocaine -MPF 2% 2 ML VIAL ONE (08:24)
[2019-08-26] MEDS ORDERED: *HR* Propofol 200 MG/20 ML VIAL IVP ONE (08:24)
[2019-08-26] MEDS ORDERED: Dexamethasone 4 MG/ML VIAL ONE (08:24)
[2019-08-26] MEDS ORDERED: *HR* Succinylcholine 200 MG/10 ML VIAL IVP ONE (08:24)
[2019-08-26] MEDS ORDERED: Lidocaine HCL 4 ML Topical Solution (Laryng-O-Jet Kit Sterile Pak) TP ONE (08:24)
[2019-08-26] MEDS ORDERED: *HR* Heparin 5,000 UNIT/ML VIAL ONE ×2 (08:32→11:55)
[2019-08-26] MEDS ORDERED: *HR* Remifentanil 2 MG VIAL IVP ONE (08:34)
[2019-08-26] MEDS ORDERED: *HR* PHENYLEPHRINE 1,000 MCG/10 ML SYRINGE IVP ONE (08:34)
[2019-08-26] MEDS ORDERED: Vancomycin 1,000 MG VIAL ONE (08:43)
[2019-08-26] MEDS ORDERED: Heparin 1,000 UNITS/500 mL 1,500 ML ONE (08:43)
[2019-08-26] MEDS ORDERED: Isovue-300 50ML VIAL ONE (08:44)
[2019-08-26] MEDS ORDERED: *HR* Promethazine 25 MG/ML VIAL IVP PRN (09:25)
[2019-08-26] MEDS ORDERED: Ondansetron 4 MG/2 ML VIAL IVP ONE (09:25)
[2019-08-26] MEDS ORDERED: *HR* OxyCODONE Immed Rel 5 MG TABLET PO PRN ×2 (09:25→15:42)
[2019-08-26] MEDS ORDERED: *HR* HYDROmorphone (PF) 1 MG/ML SYRINGE IVP PRN (09:25)
[2019-08-26] MEDS ORDERED: *HR* Phenylephrine 10 MG/ML VIAL ONE (10:28)
[2019-08-26] MEDS ORDERED: 0.9 % Sodium Chloride 1,000 ML IVC SCH (15:42)
[2019-08-26] MEDS ORDERED: *HR* HYDROcodone/Acet 5/325 mg TABLET PO PRN ×2 (15:42)
[2019-08-26] MEDS ORDERED: *HR* Heparin 5,000 UNIT/ML VIAL IVP ONE (15:42)
[2019-08-26] MEDS ORDERED: *HR* Labetalol 20 MG/4 ML SYRINGE IVP PRN (15:42)
[2019-08-26] MEDS ORDERED: *HR* Heparin 5,000 UNIT/ML VIAL IVP PRN ×2 (15:42)
[2019-08-26] MEDS ORDERED: Ondansetron 4 MG/2 ML VIAL IVP PRN (15:42)
[2019-08-26] MEDS ORDERED: Naloxone 0.4 MG/ML INJ IVP PRN (15:42)
[2019-08-26] MEDS ORDERED: Acetaminophen 325 MG TABLET PO PRN ×2 (15:42)
[2019-08-26] MEDS ORDERED: Heparin 25,000 UNIT/250 ML D5W 25,000 UNIT/250 ML IV.SOLN IVC SCH (15:42)
[2019-08-26] MEDS ORDERED: FLU Vac QV 19-20 (6Month+)/PF 0.5 ML SYRINGE IM ONE (15:58)
[2019-08-26] MEDS: *HR* Metoprolol 5 MG/5 ML VIAL IVP SCH (16:07)
[2019-08-26] MEDS: *HR* OxyCODONE Immed Rel 5 MG TABLET PO PRN (16:08)
[2019-08-26 17:02] LABS: Hematocrit 46.6 % (37.5-50.1); Hemoglobin 15.9 g/dL (12.9-16.9); Mean Corpuscular HGB Conc 34.1 g/dL (31.6-35.5); Mean Corpuscular Hemoglobin 31.7 pg (28.0-33.3); Mean Corpuscular Volume 92.8 fL (83.0-100.0); Platelet Count 212 K/mcL (140-400); Red Blood Count 5.02 M/mcL (4.19-5.50); White Blood Count 6.3 K/mcL (4.3-11.1)
[2019-08-26 17:04] LABS: INR 1.2; Prothrombin Time 13.6 Seconds (9.4-12.1)
[2019-08-26] MEDS: Clindamycin 600 MG/50 ML 600 MG/50 ML IV.SOLN IVPB SCH (17:50)
[2019-08-27] MEDS: *HR* Metoprolol 5 MG/5 ML VIAL IVP SCH ×2 (00:04→06:12)
[2019-08-27] MEDS: Clindamycin 600 MG/50 ML 600 MG/50 ML IV.SOLN IVPB SCH (00:06)
[2019-08-27] MEDS: *HR* OxyCODONE Immed Rel 5 MG TABLET PO PRN (02:17)
[2019-08-27 02:43] LABS: Basophils % 0.2 %; Hematocrit 42.8 % (37.5-50.1); Hemoglobin 14.8 g/dL (12.9-16.9); Immature Granulocytes % 0.5 % (0-4); Lymphocytes # 1.1 K/mcL (0.6-4.6); Lymphocytes % 10.9 %; Mean Corpuscular HGB Conc 34.6 g/dL (31.6-35.5); Mean Corpuscular Hemoglobin 31.6 pg (28.0-33.3); Mean Corpuscular Volume 91.3 fL (83.0-100.0); Monocytes # 0.7 K/mcL (0.0-1.3); Monocytes % 7.2 %; Neutrophils # 8.3 K/mcL (1.6-8.9); Platelet Count 203 K/mcL (140-400); Red Blood Count 4.69 M/mcL (4.19-5.50); Red Cell Distribution Width 13.1 % (11.5-14.5); Segmented Neutrophils % 81.2 %; White Blood Count 10.2 K/mcL (4.3-11.1)
[2019-08-27 03:00] LABS: BUN/Creatinine Ratio 11 (6-26); Blood Urea Nitrogen 10 mg/dL (6-20); Calcium 8.5 mg/dL (8.6-10.3); Carbon Dioxide 24 mEq/L (23-29); Chloride 106 mEq/L (98-107); Glucose 106 mg/dL (70-105); Osmolality,Calculated 283 (280-300); Potassium 4.1 mEq/L (3.5-5.1); Sodium 137 mEq/L (136-145); eGFR For African Americans > 60 (> 60); eGFR For Non-African Americans > 60 (> 60)
[2019-08-27] MEDS ORDERED: *HR* Heparin 5,000 UNIT/ML VIAL SQ SCH (06:00)
[2019-08-27 06:52] VITALS: BP 118/81
[2019-08-27] MEDS ORDERED: Aspirin 325 MG TABLET PO SCH (09:00)
== END 2019-08-27 11:43 | disposition home or self-care (01) | DRG 272 ==
LOC: SAMDAY 07:00 → 2NNU 15:50
PROVIDERS: ADMIT Surgery; ATTEND Surgery

== ENCOUNTER 2019-09-11 09:20 | Inpatient (IN) ==
[2019-09-11] MEDS ORDERED: Lidocaine -MPF 2% 2 ML VIAL ONE (09:47)
[2019-09-11] MEDS ORDERED: *HR* Propofol 200 MG/20 ML VIAL IVP ONE (09:48)
[2019-09-11] MEDS ORDERED: *HR* FentaNYL (PF) 100 MCG/2 ML VIAL ONE ×2 (09:49→16:41)
[2019-09-11] MEDS ORDERED: *HR* Midazolam HCl 2 MG/2 ML VIAL ONE (09:50)
[2019-09-11] MEDS ORDERED: *HR* Heparin 5,000 UNIT/ML VIAL ONE ×2 (09:51→14:00)
[2019-09-11] MEDS ORDERED: *HR* Methadone 10 MG TABLET PO ONE (09:52)
[2019-09-11] MEDS ORDERED: Famotidine 20 MG/2 ML VIAL IVP ONE (09:52)
[2019-09-11] MEDS ORDERED: Acetaminophen IV 1,000 MG/100 ML INFUS..BTL IVPB ONE (09:52)
[2019-09-11] MEDS ORDERED: Ondansetron 4 MG/2 ML VIAL ONE ×2 (09:53→15:24)
[2019-09-11] MEDS ORDERED: Lidocaine -MPF 4% 5 ML AMPUL ONE (09:55)
[2019-09-11] MEDS ORDERED: Albuterol 2.5 MG/3 ML NEBULIZER IH PRN (09:56)
[2019-09-11] MEDS ORDERED: Clindamycin 900 MG/50 ML 900 MG/50 ML IV.SOLN IVPB ONE (09:56)
[2019-09-11] MEDS: Ringers Solution, Lactated 1,000 ML IVC SCH ×2 (10:24→18:05)
[2019-09-11] MEDS ORDERED: Heparin 1,000 UNITS/500 mL 0 ML ONE (11:03)
[2019-09-11] MEDS ORDERED: Vancomycin 1,000 MG, Sodium Chloride IRRigation 1,000 ML IR ONE (11:10)
[2019-09-11] MEDS ORDERED: *HR* Remifentanil 2 MG VIAL IVP ONE (11:26)
[2019-09-11] MEDS ORDERED: Heparin 1,000 UNITS/500 mL 500 ML ONE (11:49)
[2019-09-11] MEDS ORDERED: EPHEDrine 50 MG/ML VIAL ONE ×3 (12:15→16:13)
[2019-09-11 12:46] LABS: ABG Base Excess -2 mEq/L (-2 to 3); ABG Chloride 107 mEq/L (98-107); ABG Glucose 104 mg/dL (60-95); ABG HCO3 25 mEq/L (21-27); ABG Ionized Calcium 1.09 mmol/L (1.15-1.35); ABG Oxygen Saturation 100 % (95-98); ABG PCO2 54 mmHg (35-45); ABG PH 7.28 pH Units (7.32-7.45); ABG PO2 338 mmHg (85-104); ABG TCO2 27 mEq/L (20-26)
[2019-09-11] MEDS ORDERED: Vancomycin 1,000 MG VIAL ONE ×2 (13:18→15:34)
[2019-09-11 13:23] LABS: ABG Base Excess -1 mEq/L (-2 to 3); ABG Chloride 108 mEq/L (98-107); ABG Glucose 101 mg/dL (60-95); ABG HCO3 25 mEq/L (21-27); ABG Ionized Calcium 1.12 mmol/L (1.15-1.35); ABG Oxygen Saturation 100 % (95-98); ABG PCO2 45 mmHg (35-45); ABG PH 7.35 pH Units (7.32-7.45); ABG PO2 457 mmHg (85-104); ABG TCO2 26 mEq/L (20-26)
[2019-09-11] MEDS ORDERED: *HR* Remifentanil 1 MG VIAL IVP ONE (14:47)
[2019-09-11] MEDS ORDERED: Dexamethasone 4 MG/ML VIAL ONE (15:24)
[2019-09-11 16:46] LABS: ABG Base Excess -5 mEq/L (-2 to 3); ABG Chloride 109 mEq/L (98-107); ABG Glucose 170 mg/dL (60-95); ABG HCO3 22 mEq/L (21-27); ABG Ionized Calcium 1.13 mmol/L (1.15-1.35); ABG Oxygen Saturation 100 % (95-98); ABG PCO2 50 mmHg (35-45); ABG PH 7.26 pH Units (7.32-7.45); ABG PO2 328 mmHg (85-104); ABG TCO2 24 mEq/L (20-26)
[2019-09-11] MEDS ORDERED: *HR* HYDROMORPHONE 2 MG/ML VIAL ONE (17:06)
[2019-09-11] MEDS ORDERED: *HR* Promethazine 25 MG/ML VIAL IVP PRN (17:27)
[2019-09-11] MEDS ORDERED: *HR* Labetalol 20 MG/4 ML SYRINGE IVP PRN ×2 (17:27→19:13)
[2019-09-11] MEDS ORDERED: Ondansetron 4 MG/2 ML VIAL IVP ONE (17:27)
[2019-09-11] MEDS ORDERED: *HR* OxyCODONE Immed Rel 5 MG TABLET PO PRN (17:27)
[2019-09-11] MEDS: *HR* HYDROmorphone (PF) 1 MG/ML SYRINGE IVP PRN ×2 (18:04→18:17)
[2019-09-11] MEDS ORDERED: Ondansetron 4 MG/2 ML VIAL IVP PRN (19:13)
[2019-09-11] MEDS ORDERED: Naloxone 0.4 MG/ML INJ IVP PRN (19:13)
[2019-09-11] MEDS ORDERED: 0.9 % Sodium Chloride 1,000 ML IVC SCH (19:13)
[2019-09-12] MEDS: *HR* Metoprolol 5 MG/5 ML VIAL IVP SCH ×4 (00:43→17:20)
[2019-09-12 04:06] LABS: INR 1.1
[2019-09-12 04:08] LABS: Activated Partial Thrombo Time 25.6 Seconds (26.0-36.0)
[2019-09-12 04:09] LABS: BUN/Creatinine Ratio 18 (6-26); Blood Urea Nitrogen 20 mg/dL (6-20); Calcium 7.9 mg/dL (8.6-10.3); Carbon Dioxide 21 mEq/L (23-29); Chloride 110 mEq/L (98-107); Glucose 152 mg/dL (70-105); Osmolality,Calculated 292 (280-300); Potassium 5.6 mEq/L (3.5-5.1); Sodium 138 mEq/L (136-145); eGFR For African Americans > 60 (> 60); eGFR For Non-African Americans > 60 (> 60)
[2019-09-12 05:25] LABS: Basophils % 0.1 %; Hematocrit 36.5 % (37.5-50.1); Hemoglobin 11.9 g/dL (12.9-16.9); Immature Granulocytes % 0.4 % (0-4); Lymphocytes # 0.7 K/mcL (0.6-4.6); Lymphocytes % 4.8 %; Mean Corpuscular HGB Conc 32.6 g/dL (31.6-35.5); Mean Platelet Volume 9.2 fL (9.4-12.4); Monocytes % 7.7 %; Neutrophils # 11.8 K/mcL (1.6-8.9); Platelet Count 316 K/mcL (140-400); Red Blood Count 3.72 M/mcL (4.19-5.50); Red Cell Distribution Width 12.6 % (11.5-14.5); White Blood Count 13.6 K/mcL (4.3-11.1)
[2019-09-12 05:33] LABS: Mean Corpuscular Volume 98.1 fL (83.0-100.0)
[2019-09-12] MEDS: *HR* Heparin 5,000 UNIT/ML VIAL SQ SCH ×2 (05:40→17:20)
[2019-09-12] MEDS ORDERED: *HR* Heparin 5,000 UNIT/ML VIAL SQ SCH (06:00)
[2019-09-12] MEDS ORDERED: Furosemide 20 MG/2 ML VIAL IVP ONE (06:32)
[2019-09-12] MEDS ORDERED: Calcium Gluconate 1gm/50mL 1 GM/50 ML BAG IVPB ONE (06:34)
[2019-09-12] MEDS: 0.9 % Sodium Chloride 1,000 ML IVC SCH ×2 (07:37→17:19)
[2019-09-12] MEDS: Aspirin 325 MG TABLET PO SCH (07:49)
[2019-09-12] MEDS ORDERED: 0.9 % Sodium Chloride 1,000 ML IVC SCH (18:43)
[2019-09-13] MEDS: *HR* Metoprolol 5 MG/5 ML VIAL IVP SCH ×5 (00:18→23:55)
[2019-09-13] MEDS ORDERED: 0.9 % Sodium Chloride 500 ML IVC SCH (03:00)
[2019-09-13 04:07] LABS: VBG Ionized Calcium 1.15 mmol/L (1.15-1.35)
[2019-09-13 04:08] LABS: Basophils % 0.2 %; Hematocrit 30.9 % (37.5-50.1); Hemoglobin 10.4 g/dL (12.9-16.9); Immature Granulocytes % 0.4 % (0-4); Lymphocytes # 0.8 K/mcL (0.6-4.6); Lymphocytes % 9.3 %; Mean Corpuscular HGB Conc 33.7 g/dL (31.6-35.5); Mean Corpuscular Hemoglobin 32.2 pg (28.0-33.3); Mean Corpuscular Volume 95.7 fL (83.0-100.0); Mean Platelet Volume 9.4 fL (9.4-12.4); Monocytes # 0.7 K/mcL (0.0-1.3); Monocytes % 8.2 %; Neutrophils # 6.9 K/mcL (1.6-8.9); Platelet Count 289 K/mcL (140-400); Red Blood Count 3.23 M/mcL (4.19-5.50); Red Cell Distribution Width 12.8 % (11.5-14.5); Segmented Neutrophils % 81.9 %; White Blood Count 8.5 K/mcL (4.3-11.1)
[2019-09-13 04:36] LABS: BUN/Creatinine Ratio 20 (6-26); Blood Urea Nitrogen 20 mg/dL (6-20); Calcium 8.2 mg/dL (8.6-10.3); Carbon Dioxide 25 mEq/L (23-29); Chloride 111 mEq/L (98-107); Glucose 122 mg/dL (70-105); Osmolality,Calculated 294 (280-300); Sodium 140 mEq/L (136-145); eGFR For African Americans > 60 (> 60); eGFR For Non-African Americans > 60 (> 60)
[2019-09-13] MEDS: *HR* Heparin 5,000 UNIT/ML VIAL SQ SCH ×2 (06:14→16:32)
[2019-09-13] MEDS: Aspirin 325 MG TABLET PO SCH (08:00)
[2019-09-13] MEDS ORDERED: Bisacodyl 10 MG RECTAL SUPPOSITORY RC ONE (09:00)
[2019-09-14 01:51] LABS: Basophils % 0.3 %; Eosinophils % 0.1 %; Hematocrit 31.5 % (37.5-50.1); Hemoglobin 10.8 g/dL (12.9-16.9); Immature Granulocytes % 0.3 % (0-4); Lymphocytes % 14.2 %; Mean Corpuscular HGB Conc 34.3 g/dL (31.6-35.5); Mean Corpuscular Hemoglobin 32.2 pg (28.0-33.3); Mean Platelet Volume 9.7 fL (9.4-12.4); Monocytes # 0.6 K/mcL (0.0-1.3); Monocytes % 9.2 %; Neutrophils # 5.2 K/mcL (1.6-8.9); Platelet Count 323 K/mcL (140-400); Red Blood Count 3.35 M/mcL (4.19-5.50); Red Cell Distribution Width 12.6 % (11.5-14.5); Segmented Neutrophils % 75.9 %; White Blood Count 6.8 K/mcL (4.3-11.1)
[2019-09-14 02:16] LABS: BUN/Creatinine Ratio 18 (6-26); Blood Urea Nitrogen 18 mg/dL (6-20); Calcium 8.8 mg/dL (8.6-10.3); Carbon Dioxide 25 mEq/L (23-29); Chloride 108 mEq/L (98-107); Glucose 108 mg/dL (70-105); Osmolality,Calculated 294 (280-300); Potassium 3.7 mEq/L (3.5-5.1); Sodium 141 mEq/L (136-145); eGFR For African Americans > 60 (> 60); eGFR For Non-African Americans > 60 (> 60)
[2019-09-14] MEDS: *HR* Heparin 5,000 UNIT/ML VIAL SQ SCH ×2 (05:06→18:15)
[2019-09-14] MEDS: *HR* Metoprolol 5 MG/5 ML VIAL IVP SCH ×4 (05:08→23:50)
[2019-09-14] MEDS: Aspirin 325 MG TABLET PO SCH (12:02)
[2019-09-14] MEDS ORDERED: Albuterol 2.5 MG/3 ML NEBULIZER IH PRN (18:04)
[2019-09-14] MEDS ORDERED: Albuterol 2.5 MG/3 ML NEBULIZER IH ONE (18:04)
[2019-09-14] MEDS: D5% in Lactated Ringers 1,000 ML IVC SCH (23:50)
[2019-09-15] MEDS: *HR* Metoprolol 5 MG/5 ML VIAL IVP SCH ×3 (05:48→23:06)
[2019-09-15] MEDS: *HR* Heparin 5,000 UNIT/ML VIAL SQ SCH (05:48)
[2019-09-15] MEDS: Aspirin 325 MG TABLET PO SCH (08:17)
[2019-09-15] MEDS ORDERED: Ondansetron 4 MG/2 ML VIAL IVP PRN ×2 (10:47→19:47)
[2019-09-15] MEDS: D5% in Lactated Ringers 1,000 ML IVC SCH ×2 (12:46→20:17)
[2019-09-15] MEDS ORDERED: Lidocaine/EPI 1:100k 1% 20 ML VIAL ONE (16:06)
[2019-09-15] MEDS ORDERED: Dexamethasone 4 MG/ML VIAL ONE (16:06)
[2019-09-15] MEDS ORDERED: *HR* Rocuronium Bromide 50 MG/5 ML VIAL ONE (16:06)
[2019-09-15] MEDS ORDERED: Lidocaine -MPF 1% 5 ML AMPUL ONE (16:06)
[2019-09-15] MEDS ORDERED: *HR* Propofol 200 MG/20 ML VIAL IVP ONE (16:06)
[2019-09-15] MEDS ORDERED: *HR* FentaNYL (PF) 100 MCG/2 ML VIAL ONE (16:06)
[2019-09-15] MEDS ORDERED: Ondansetron 4 MG/2 ML VIAL ONE (16:06)
[2019-09-15] MEDS ORDERED: Vancomycin 1,000 MG VIAL ONE ×2 (16:07→16:54)
[2019-09-15] MEDS ORDERED: *HR* Midazolam HCl 2 MG/2 ML VIAL ONE ×2 (16:07→17:59)
[2019-09-15] MEDS ORDERED: Acetaminophen IV 1,000 MG/100 ML INFUS..BTL ONE (16:13)
[2019-09-15] MEDS ORDERED: *HR* OxyCODONE Immed Rel 5 MG TABLET PO PRN (16:49)
[2019-09-15] MEDS ORDERED: Clindamycin 900 MG/50 ML 900 MG/50 ML IV.SOLN IVPB ONE (16:57)
[2019-09-15] MEDS: *HR* HYDROmorphone (PF) 1 MG/ML SYRINGE IVP PRN ×4 (18:20→18:40)
[2019-09-15] MEDS ORDERED: Naloxone 0.4 MG/ML INJ IVP PRN (19:47)
[2019-09-15] MEDS ORDERED: Albuterol 2.5 MG/3 ML NEBULIZER IH PRN (19:47)
[2019-09-15] MEDS ORDERED: *HR* Labetalol 20 MG/4 ML SYRINGE IVP PRN (19:47)
[2019-09-16 01:26] LABS: Basophils % 0.2 %; Hematocrit 32.6 % (37.5-50.1); Hemoglobin 11.3 g/dL (12.9-16.9); Immature Granulocytes % 0.4 % (0-4); Lymphocytes # 0.3 K/mcL (0.6-4.6); Lymphocytes % 6.9 %; Mean Corpuscular HGB Conc 34.7 g/dL (31.6-35.5); Mean Corpuscular Hemoglobin 31.7 pg (28.0-33.3); Mean Corpuscular Volume 91.3 fL (83.0-100.0); Mean Platelet Volume 9.8 fL (9.4-12.4); Monocytes # 0.5 K/mcL (0.0-1.3); Monocytes % 11.2 %; Neutrophils # 3.8 K/mcL (1.6-8.9); Platelet Count 295 K/mcL (140-400); Red Blood Count 3.57 M/mcL (4.19-5.50); Red Cell Distribution Width 12.4 % (11.5-14.5); Segmented Neutrophils % 81.3 %; White Blood Count 4.6 K/mcL (4.3-11.1)
[2019-09-16 01:43] LABS: BUN/Creatinine Ratio 25 (6-26); Blood Urea Nitrogen 22 mg/dL (6-20); Calcium 8.5 mg/dL (8.6-10.3); Carbon Dioxide 30 mEq/L (23-29); Chloride 103 mEq/L (98-107); Glucose 151 mg/dL (70-105); Osmolality,Calculated 298 (280-300); Potassium 3.6 mEq/L (3.5-5.1); Sodium 141 mEq/L (136-145); eGFR For African Americans > 60 (> 60); eGFR For Non-African Americans > 60 (> 60)
[2019-09-16] MEDS: Clindamycin 600 MG/50 ML 600 MG/50 ML IV.SOLN IVPB SCH ×2 (02:12→07:50)
[2019-09-16] MEDS: *HR* Metoprolol 5 MG/5 ML VIAL IVP SCH ×4 (06:17→23:30)
[2019-09-16] MEDS: *HR* Heparin 5,000 UNIT/ML VIAL SQ SCH ×2 (06:17→18:01)
[2019-09-16] MEDS: D5% in Lactated Ringers 1,000 ML IVC SCH ×2 (07:50→21:31)
[2019-09-16] MEDS: Aspirin 325 MG TABLET PO SCH (07:50)
[2019-09-17] MEDS: *HR* Heparin 5,000 UNIT/ML VIAL SQ SCH ×2 (05:43→17:02)
[2019-09-17] MEDS: *HR* Metoprolol 5 MG/5 ML VIAL IVP SCH ×4 (05:43→23:26)
[2019-09-17] MEDS ORDERED: Acetaminophen 325 MG TABLET PO PRN (06:33)
[2019-09-17] MEDS ORDERED: *HR* OxyCODONE Immed Rel 5 MG TABLET PO PRN (06:33)
[2019-09-17] MEDS: Aspirin 325 MG TABLET PO SCH (08:06)
[2019-09-17] MEDS: D5% in Lactated Ringers 1,000 ML IVC SCH (11:34)
[2019-09-17] MEDS ORDERED: Bisacodyl 10 MG RECTAL SUPPOSITORY RC ONE (13:03)
[2019-09-17] MEDS ORDERED: Ketorolac 15 MG/ML VIAL IVP PRN (17:19)
[2019-09-17] MEDS: Metoclopramide 10 MG/2 ML VIAL IVP SCH ×2 (18:14→23:26)
[2019-09-18] MEDS: D5% in Lactated Ringers 1,000 ML IVC SCH ×2 (00:09→17:40)
[2019-09-18 00:59] LABS: Basophils % 0.1 %; Hematocrit 29.1 % (37.5-50.1); Hemoglobin 10.1 g/dL (12.9-16.9); Immature Granulocytes % 0.4 % (0-4); Lymphocytes # 0.6 K/mcL (0.6-4.6); Lymphocytes % 8.6 %; Mean Corpuscular HGB Conc 34.7 g/dL (31.6-35.5); Mean Corpuscular Hemoglobin 32.4 pg (28.0-33.3); Mean Corpuscular Volume 93.3 fL (83.0-100.0); Mean Platelet Volume 9.6 fL (9.4-12.4); Monocytes # 0.9 K/mcL (0.0-1.3); Monocytes % 11.6 %; Neutrophils # 5.8 K/mcL (1.6-8.9); Nucleated Red Blood Cells 0.3 /100 WBC (0); Platelet Count 308 K/mcL (140-400); Red Blood Count 3.12 M/mcL (4.19-5.50); Red Cell Distribution Width 12.4 % (11.5-14.5); Segmented Neutrophils % 79.3 %
[2019-09-18 01:02] LABS: White Blood Count 7.3 K/mcL (4.3-11.1)
[2019-09-18 01:18] LABS: BUN/Creatinine Ratio 23 (6-26); Blood Urea Nitrogen 25 mg/dL (6-20); Calcium 8.6 mg/dL (8.6-10.3); Carbon Dioxide 35 mEq/L (23-29); Chloride 97 mEq/L (98-107); Glucose 137 mg/dL (70-105); Osmolality,Calculated 293 (280-300); Sodium 138 mEq/L (136-145); eGFR For African Americans > 60 (> 60); eGFR For Non-African Americans > 60 (> 60)
[2019-09-18] MEDS: *HR* Heparin 5,000 UNIT/ML VIAL SQ SCH ×2 (06:16→16:22)
[2019-09-18] MEDS: Metoclopramide 10 MG/2 ML VIAL IVP SCH ×3 (06:17→16:22)
[2019-09-18] MEDS: *HR* Metoprolol 5 MG/5 ML VIAL IVP SCH ×3 (06:18→16:22)
[2019-09-18] MEDS ORDERED: Potassium Chloride 40 MEQ, Lidocaine 1% 2 ML in 0.9 % Sodium Chloride 500 ML IVPB ONE (08:01)
[2019-09-18] MEDS: Aspirin 325 MG TABLET PO SCH (11:08)
[2019-09-19] MEDS: Metoclopramide 10 MG/2 ML VIAL IVP SCH ×5 (01:10→23:41)
[2019-09-19] MEDS: *HR* Metoprolol 5 MG/5 ML VIAL IVP SCH ×5 (01:10→23:41)
[2019-09-19 05:05] LABS: Basophils % 0.2 %; Hematocrit 27.7 % (37.5-50.1); Hemoglobin 9.2 g/dL (12.9-16.9); Lymphocytes # 0.9 K/mcL (0.6-4.6); Lymphocytes % 17.7 %; Mean Corpuscular HGB Conc 33.2 g/dL (31.6-35.5); Mean Corpuscular Hemoglobin 31.6 pg (28.0-33.3); Mean Corpuscular Volume 95.2 fL (83.0-100.0); Mean Platelet Volume 9.7 fL (9.4-12.4); Monocytes # 0.6 K/mcL (0.0-1.3); Monocytes % 12.2 %; Neutrophils # 3.6 K/mcL (1.6-8.9); Nucleated Red Blood Cells 0.4 /100 WBC (0); Platelet Count 328 K/mcL (140-400); Red Blood Count 2.91 M/mcL (4.19-5.50); Red Cell Distribution Width 12.6 % (11.5-14.5); Segmented Neutrophils % 68.9 %; White Blood Count 5.2 K/mcL (4.3-11.1)
[2019-09-19 05:26] LABS: BUN/Creatinine Ratio 26 (6-26); Blood Urea Nitrogen 25 mg/dL (6-20); Calcium 8.1 mg/dL (8.6-10.3); Carbon Dioxide 32 mEq/L (23-29); Chloride 100 mEq/L (98-107); Glucose 112 mg/dL (70-105); Osmolality,Calculated 301 (280-300); Sodium 143 mEq/L (136-145); eGFR For African Americans > 60 (> 60); eGFR For Non-African Americans > 60 (> 60)
[2019-09-19] MEDS: *HR* Heparin 5,000 UNIT/ML VIAL SQ SCH ×2 (06:22→17:35)
[2019-09-19] MEDS: Aspirin 325 MG TABLET PO SCH (09:13)
[2019-09-19] MEDS: D5% in Lactated Ringers 1,000 ML IVC SCH (09:15)
[2019-09-19] MEDS ORDERED: Potassium Chloride 40 MEQ, Lidocaine 1% 2 ML in 0.9 % Sodium Chloride 500 ML IVPB ONE (13:31)
[2019-09-19] MEDS: Calcium Chloride 1,000 MG in 0.9 % Sodium Chloride 100 ML IVPB ONE ×2 (15:20→16:27)
[2019-09-19] MEDS: D5% in 0.45% NACL w KCl 20 MEQ/1,000 ML MLS IVC SCH (15:30)
[2019-09-19] MEDS ORDERED: Calcium Gluconate 1gm/50mL 1 GM/50 ML BAG IVPB ONE (17:00)
[2019-09-19] MEDS: *HR* HYDROcodone/Acet 5/325 mg TABLET PO PRN (22:53)
[2019-09-20] MEDS: *HR* Heparin 5,000 UNIT/ML VIAL SQ SCH (05:05)
[2019-09-20] MEDS: *HR* Metoprolol 5 MG/5 ML VIAL IVP SCH ×2 (05:06→12:16)
[2019-09-20] MEDS: Metoclopramide 10 MG/2 ML VIAL IVP SCH (05:07)
[2019-09-20] MEDS: Aspirin 325 MG TABLET PO SCH (07:42)
[2019-09-20] MEDS: D5% in 0.45% NACL w KCl 20 MEQ/1,000 ML MLS IVC SCH (09:32)
[2019-09-20] MEDS: *HR* HYDROcodone/Acet 5/325 mg TABLET PO PRN (09:36)
[2019-09-20 10:27] LABS: Basophils % 0.5 %; Hematocrit 28.5 % (37.5-50.1); Hemoglobin 9.8 g/dL (12.9-16.9); Immature Granulocytes % 1.6 % (0-4); Lymphocytes # 1.2 K/mcL (0.6-4.6); Lymphocytes % 18.9 %; Mean Corpuscular HGB Conc 34.4 g/dL (31.6-35.5); Mean Corpuscular Hemoglobin 31.5 pg (28.0-33.3); Mean Corpuscular Volume 91.6 fL (83.0-100.0); Mean Platelet Volume 9.1 fL (9.4-12.4); Monocytes # 0.5 K/mcL (0.0-1.3); Monocytes % 8.1 %; Neutrophils # 4.4 K/mcL (1.6-8.9); Nucleated Red Blood Cells 0.3 /100 WBC (0); Platelet Count 339 K/mcL (140-400); Red Blood Count 3.11 M/mcL (4.19-5.50); Red Cell Distribution Width 12.8 % (11.5-14.5); Segmented Neutrophils % 70.9 %; White Blood Count 6.2 K/mcL (4.3-11.1)
[2019-09-20 10:44] LABS: BUN/Creatinine Ratio 17 (6-26); Blood Urea Nitrogen 16 mg/dL (6-20); Carbon Dioxide 27 mEq/L (23-29); Chloride 103 mEq/L (98-107); Glucose 112 mg/dL (70-105); Osmolality,Calculated 286 (280-300); Potassium 3.4 mEq/L (3.5-5.1); Sodium 137 mEq/L (136-145); eGFR For African Americans > 60 (> 60); eGFR For Non-African Americans > 60 (> 60)
[2019-09-20 11:52] VITALS: BP 146/84
== END 2019-09-20 13:08 | disposition home or self-care (01) | DRG 270 ==
LOC: SAMDAY 09:20 → 2NNU 11:00
PROVIDERS: ADMIT Surgery; ATTEND Surgery

== ENCOUNTER 2022-03-16 06:05 | Inpatient (IN) ==
[2022-03-16] MEDS ORDERED: Ringers Solution, Lactated 1,000 ML IVC SCH (06:30)
[2022-03-16] MEDS ORDERED: *HR* FentaNYL (PF) 100 MCG/2 ML VIAL ONE (06:40)
[2022-03-16] MEDS ORDERED: *HR* Propofol 200 MG/20 ML VIAL IVP ONE (06:40)
[2022-03-16] MEDS ORDERED: Lidocaine -MPF 2% 5 ML VIAL ONE (06:42)
[2022-03-16] MEDS ORDERED: Ondansetron 4 MG/2 ML VIAL ONE (06:42)
[2022-03-16] MEDS ORDERED: *HR* Succinylcholine 200 MG/10 ML VIAL IVP ONE (06:42)
[2022-03-16] MEDS ORDERED: *HR* Rocuronium Bromide 50 MG/5 ML VIAL ONE ×3 (06:42→11:49)
[2022-03-16] MEDS ORDERED: Vancomycin 1,250 MG/262.5 ML IV.SOLN IVPB ONE ×3 (07:00→19:30)
[2022-03-16] MEDS ORDERED: *HR* Remifentanil 2 MG VIAL IVP ONE (07:06)
[2022-03-16] MEDS ORDERED: *HR* Phenylephrine 10 MG/ML VIAL ONE (07:07)
[2022-03-16] MEDS ORDERED: Bupivacaine-MPF 0.25% 10 ML VIAL ONE (07:14)
[2022-03-16] MEDS ORDERED: Heparin 1,000 UNITS/500 mL 1,000 ML ONE (07:14)
[2022-03-16] MEDS ORDERED: Protamine Sulfate 50 MG/5 ML VIAL IVP ONE (07:14)
[2022-03-16] MEDS ORDERED: Vancomycin 1,000 MG VIAL ONE (07:15)
[2022-03-16] MEDS ORDERED: *HR* Midazolam HCl 2 MG/2 ML VIAL ONE (07:17)
[2022-03-16] MEDS ORDERED: *HR* OxyCODONE Immed Rel 5 MG TABLET PO PRN ×3 (07:20→14:37)
[2022-03-16] MEDS ORDERED: Acetaminophen IV 1,000 MG/100 ML BAG IVPB ONE (07:20)
[2022-03-16] MEDS ORDERED: Famotidine 20 MG/2 ML VIAL IVP ONE (07:20)
[2022-03-16] MEDS ORDERED: *HR* Labetalol 20 MG/4 ML SYRINGE IVP PRN ×3 (07:20→14:37)
[2022-03-16] MEDS ORDERED: *HR* HYDROmorphone 2 MG TABLET PO PRN (07:20)
[2022-03-16] MEDS ORDERED: Ondansetron 4 MG/2 ML VIAL IVP PRN ×3 (07:20→14:37)
[2022-03-16] MEDS ORDERED: Pregabalin 75 MG CAPSULE PO ONE (07:20)
[2022-03-16] MEDS ORDERED: Clindamycin 900 MG/50 ML 900 MG/50 ML IV.SOLN IVPB ONE ×3 (07:28→14:37)
[2022-03-16] MEDS ORDERED: Heparin 1,000 UNITS/500 mL 0 ML ONE (07:35)
[2022-03-16] MEDS ORDERED: Vancomycin 1,000 MG, Sodium Chloride IRRigation 1,000 ML IR ONE (07:45)
[2022-03-16] MEDS ORDERED: EPHEDrine 50 MG/ML VIAL ONE (08:18)
[2022-03-16] MEDS ORDERED: *HR* Heparin 5,000 UNIT/ML VIAL ONE ×2 (09:27→10:39)
[2022-03-16] MEDS ORDERED: *HR* Remifentanil 1 MG VIAL IVP ONE (12:12)
[2022-03-16] MEDS ORDERED: Sugammadex Sodium 200 MG/2 ML VIAL IV ONE (12:20)
[2022-03-16] MEDS ORDERED: Acetaminophen 325 MG TABLET PO PRN ×2 (13:00→14:37)
[2022-03-16] MEDS ORDERED: *HR* HYDROcodone/Acet 5/325 mg TABLET PO PRN (13:00)
[2022-03-16] MEDS ORDERED: Naloxone 0.4 MG/ML INJ IVP PRN (13:00)
[2022-03-16] MEDS ORDERED: 0.9 % Sodium Chloride 1,000 ML IVC SCH ×2 (13:00→14:37)
[2022-03-16] MEDS: *HR* HYDROmorphone PF 0.5 MG/0.5 ML SYRINGE IVP PRN ×2 (13:20→13:37)
[2022-03-16] MEDS ORDERED: Nitroglycerin 0.4 MG TAB.SUBL SL PRN (14:37)
[2022-03-16] MEDS ORDERED: *HR* Metoprolol 5 MG/5 ML VIAL IVP SCH (18:00)
[2022-03-16] MEDS: *HR* Metoprolol 5 MG/5 ML VIAL IVP SCH ×2 (18:46→22:55)
[2022-03-16] MEDS: *HR* HYDROcodone/Acet 5/325 mg TABLET PO PRN (18:58)
[2022-03-16] MEDS: Ranolazine 500 MG TAB.ER.12H PO SCH (20:31)
[2022-03-17] MEDS: *HR* HYDROcodone/Acet 5/325 mg TABLET PO PRN ×2 (04:17→11:38)
[2022-03-17 05:25] LABS: Basophils % 0.2 %; Hematocrit 41.5 % (37.5-50.1); Hemoglobin 13.7 g/dL (12.9-16.9); Immature Granulocytes % 0.4 % (0-4); Lymphocytes # 0.8 K/mcL (0.6-4.6); Lymphocytes % 7.9 %; Mean Corpuscular Hemoglobin 31.1 pg (28.0-33.3); Mean Corpuscular Volume 94.1 fL (83.0-100.0); Mean Platelet Volume 9.6 fL (9.4-12.4); Monocytes # 0.8 K/mcL (0.0-1.3); Monocytes % 7.7 %; Neutrophils # 8.9 K/mcL (1.6-8.9); Platelet Count 203 K/mcL (140-400); Red Blood Count 4.41 M/mcL (4.19-5.50); Red Cell Distribution Width 12.6 % (11.5-14.5); Segmented Neutrophils % 83.8 %; White Blood Count 10.6 K/mcL (4.3-11.1)
[2022-03-17 05:36] LABS: BUN/Creatinine Ratio 12 (6-26); Blood Urea Nitrogen 14 mg/dL (8-23); Calcium 8.6 mg/dL (8.6-10.3); Carbon Dioxide 28 mEq/L (23-29); Chloride 105 mEq/L (98-107); Glucose 121 mg/dL (70-105); Osmolality,Calculated 286 (280-300); Potassium 4.6 mEq/L (3.5-5.1); Sodium 137 mEq/L (136-145); eGFR For African Americans > 60 (> 60); eGFR For Non-African Americans > 60 (> 60)
[2022-03-17] MEDS: *HR* Metoprolol 5 MG/5 ML VIAL IVP SCH ×2 (05:55→11:40)
[2022-03-17] MEDS ORDERED: *HR* Heparin 5,000 UNIT/ML VIAL SQ SCH ×2 (06:00)
[2022-03-17] MEDS: Ranolazine 500 MG TAB.ER.12H PO SCH (08:45)
[2022-03-17] MEDS ORDERED: Aspirin Enteric Coated 81 MG Tablet PO SCH (09:00)
[2022-03-17] MEDS ORDERED: lisinopriL 10 MG TABLET PO SCH (09:00)
[2022-03-17 11:16] VITALS: BP 139/77; PULSE 69; TEMP 98.3; O2SAT 95
== END 2022-03-17 13:28 | disposition home or self-care (01) | DRG 254 ==
LOC: SAMDAY 06:05 → 2NNU 15:04
PROVIDERS: ADMIT Surgery; ATTEND Surgery
PROC: VASFFBG (ICD-10-PCS; 2022-03-16 07:45)